=== PATIENT | male | born 1960 | race Caucasian/White ===

== ENCOUNTER 2018-01-04 14:57 | Emergency (ER) | payer MEDICAID ==
[2015-06-21 05:09] VITALS: BMI 21.2
[~2018-01-04 14:57] MED LIST: ECOTRIN325 MG PO; PLAVIX75 MG PO
== END 2018-01-04 17:03 | disposition home or self-care (01) ==
LOC: D.ER 14:57
DX: S20.212A Contusion of left front wall of thorax, initial encounter (principal); W01.0XXA Fall on same level from slipping, tripping and stumbling without subsequent striking against object, initial encounter; Y93.89 Activity, other specified; Y92.019 Unspecified place in single-family (private) house as the place of occurrence of the external cause; R07.89 Other chest pain; K21.9 Gastro-esophageal reflux disease without esophagitis; I10 Essential (primary) hypertension; F17.200 Nicotine dependence, unspecified, uncomplicated